=== PATIENT | female | born 1955 | race Caucasian/White ===

== ENCOUNTER 2023-02-08 09:58 | Outpatient (CLI) | payer MEDICARE, BC ==
[~2023-02-08 09:58] MED LIST: Iopamidol 300 61% 100 ML VIAL FS ONE
== END 2023-02-08 09:59 | disposition home or self-care (01) ==
LOC: CSHCT 09:58
PROVIDERS: ATTEND Internal Medicine Gastroenterology
DX: R63.4 Abnormal weight loss (principal); R10.13 Epigastric pain; D35.01 Benign neoplasm of right adrenal gland; K59.00 Constipation, unspecified; N20.0 Calculus of kidney; K83.8 Other specified diseases of biliary tract
CPT/HCPCS: 74177; 82565